=== PATIENT | male | born 1985 | race Two or more races ===

== ENCOUNTER 2019-05-18 09:26 | Emergency (ER) | payer OTHER ==
[~2019-05-18] VITALS: Ht 167.6 cm; Wt 79.4 kg
--- NOTE | 2019-05-18 09:27 | NUR ---
PT BIBRA TO ED BED 12 ACCOMPANIED BY PD. PT IS IN CUSTODY AND WAS GOING TO COURT WHEN PT STARTED TO NOT RESPOND. PT IS NOT ANSWERING QUESTIONS VERBALLY. RESPOND TO PAINFUL STIMULI. VITALS STABLE. ACCUCHECK NORMAL IN THE FIELD. ON MONITOR. AWAITING MD AGUIRRE.
--- NOTE | 2019-05-18 09:33 | NUR ---
DR EATON AT BEDSIDE FOR EVAL.
[2019-05-18 10:48] LABS: BASOPHILS % (AUTO) 0.3 % (0.0-2.0); EOSINOPHILS % (AUTO) 0.1 % (0.0-6.0); HEMATOCRIT 41 % (39-51); HEMOGLOBIN 13.9 g/dL (13.5-17.5); LYMPHOCYTES # (AUTO) 1.4 /CMM (0.8-4.8); LYMPHOCYTES % (AUTO) 12.8 % (20.0-44.0); MEAN CORPUSCULAR HGB CONC 34 g/dl (31.0-36.0); MEAN CORPUSCULAR VOLUME 83 fL (80-96); MONOCYTES # (AUTO) 0.4 /CMM (0.1-1.30); MONOCYTES % (AUTO) 3.8 % (2.0-12.0); NEUTROPHILS # (AUTO) 8.9 /CMM (1.8-8.9); PLATELET COUNT (AUTO) 338 /CMM (150-450); RED BLOOD CELL COUNT(AUTO) 4.95 MIL/uL (4.5-6.0); WHITE BLOOD COUNT (AUTO) 10.7 K/uL (4.3-11.0)
[2019-05-18 10:55] LABS: CALCIUM, SERUM 9.2 mg/dL (8.5-10.1); CARBON DIOXIDE 23 mmol/L (21-32); CHLORIDE 103 mmol/L (98-107); CREATININE 0.8 mg/dL (0.6-1.3); GLUCOSE 123 mg/dL (74-106); POTASSIUM 3.8 mmol/L (3.5-5.1); SODIUM SERUM 138 mmol/L (136-145); UREA NITROGEN, BLOOD 11 mg/dL (7-18)
--- NOTE | 2019-05-18 10:55 | NUR ---
PT TO RADIOLOGY FOR HEAD CT SCAN VIA [facility].
[2019-05-18 10:56] LABS: ALCOHOL, BLOOD < 3 mg/dL (0-0)
--- NOTE | 2019-05-18 13:08 | NUR ---
PT SLEEPING, ON MONITOR. STABLE VITAL. WILL CONTINUE TO MONITOR.
--- NOTE | 2019-05-18 17:20 | NUR ---
SLEEPING. ON MONITOR. VSS. WILL CONTINUE TO MONITOR.
--- NOTE | 2019-05-18 18:25 | NUR ---
PT SLEEPING, MORE AROUSABLE. ON MONITOR. VSS. WILL CONTINUE TO MONITOR.
--- NOTE | 2019-05-18 19:51 | NUR ---
REPORT TO CHARGE NURSE GANNON FOR [facility].
--- NOTE | 2019-05-18 20:06 | NUR ---
PATIENT AMBULATORY. WALKED OUT OF EMERGENCY ROOM. CLOTHING, SOCKS, SHOES AND A MEAL PROVIDED TO PT. PT GIVEN A TAP CARD AND HAD AN ADDRESS. -SOB NOTED. -DIZZY. AOX4. AMBULATORY W STEADY GAIT NO ASSISTANCE. AWARE
[2019-05-18 20:08] VITALS: BP 128/77
== END 2019-05-18 20:08 | disposition home or self-care (01) ==
LOC: ER 09:29
DX: F19.10 Other psychoactive substance abuse, uncomplicated (principal); R94.31 Abnormal electrocardiogram [ECG] [EKG]; R40.4 Transient alteration of awareness; Z76.5 Malingerer [conscious simulation]
CPT/HCPCS: 36415; 70450; 71045; 80048; 80305; 80307; 82962; 85025; 93005; 99284; A6403; G0480